=== PATIENT | female | born 1950 | race American Indian/Alaskan Native ===

== ENCOUNTER 2019-11-02 09:26 | Outpatient (CLI) | payer OTHER ==
--- NOTE | 2019-11-02 12:03 | Ultrasound Report ---
BILATERAL DIGITAL DIAGNOSTIC MAMMOGRAM WITH CAD 11/02/2019 RIGHT COMPLETE BREAST ULTRASOUND INDICATION: Right nipple discharge. The patient describes a nonspontaneous milky right nipple dischar ge. TECHNIQUE: Digital bilateral mammographic imaging was performed. This examination was interpreted wi th the benefit of Computer-Aided Detection (CAD) analysis. COMPARISON: None available. However, she indicated that she had a prior mammogram at [facility]. FINDINGS: Breast Density: The breasts are heterogeneously dense, which may obscure small masses. MAMMOGRAPHIC FINDINGS: Circumscribed right lower inner densities persist on spot compression. There i s no evidence of dominant mass, suspicious calcifications or architectural distortion in the left reba ast. ULTRASOUND FINDINGS: Complete sonographic evaluation of all 4 quadrants and retroareolar region was p erformed. Ultrasound of the right breast demonstrated an oval solid hypoechoic shadowing mass at 5: 00 2 cm from the nipple measuring 5 x 5 x 3 mm. It may correlate with one of the mammographic densiti es. A benign cyst at 3:00 4 cm from the nipple measures 3 mm and may correlate with the mammographic density. Ultrasound of the right axilla demonstrated a suspicious lymph node with no central fat. It measures 8 x 8 x 6 mm. IMPRESSION: A suspicious 5 mm solid right breast mass at 5:00 2 cm from the nipple and a suspicious r ight axillary lymph node. Recommend ultrasound-guided needle biopsies of these 2 lesions. Discussed the findings and the recommendation for needle biopsies with the patient at the time of the exam. Follow up recommendation: Biopsy BI-RADS Category 4: Suspicious for Malignancy. A "normal" or negative report should not discourage follow up or biopsy of a clinically significant f inding. A written summary of these findings will be mailed to the patient. The patient will be entered into a mammography reporting system which will generate a reminder letter for the patient's next appointmen t at the appropriate interval. According to the [employer], yearly mammograms are recommended starting at age 40 and continuing as long as a woman is in good health. Breast MRI is recommended for women with an destiny roximately 20-25% or greater lifetime risk of breast cancer, including women with a strong family his tory of breast or ovarian cancer and women who have been treated for Hodgkin's disease. Signer Name: Leopoldo Mora MD Signed: 11/02/2019 11:58 AM Workstation Name: [id number]
== END 2019-11-02 09:27 | disposition home or self-care (01) ==
LOC: MAMMO 09:26
PROVIDERS: ATTEND Internal Medicine
DX: N60.01 Solitary cyst of right breast (principal); N63.14 Unspecified lump in the right breast, lower inner quadrant
CPT/HCPCS: 77066

== ENCOUNTER 2019-12-03 08:48 | Outpatient (CLI) | payer OTHER ==
--- NOTE | 2019-12-03 10:15 | Ultrasound Report ---
LIMITED RIGHT BREAST ULTRASOUND INDICATION: RIGHT BREAST MASS. The patient presented for an ultrasound biopsy of a 5 mm lesion identified by ultr asound 11/02/2019. COMPARISON: 11/02/2019 ultrasound performed at [facility]. FINDINGS: Ultrasound of the right breast failed to demonstrate a mass at 5:00 2 cm from the nipple to correlate with the finding performed on a different ultrasound machine. Ultrasound of the right axilla demonst rated normal lymph nodes with fatty ashwin and no suspicious lymph nodes. IMPRESSION: 1. No suspicious lesion or lymph node biopsy. 2. Probably benign findings. 3. Recommend. 6 month follow-up right mammogram and targeted right breast ultrasound at 5:00 2 cm fro m the nipple. BI-RADS Category 3: Probably Benign Signer Name: Leopoldo Mora MD Signed: 12/03/2019 10:11 AM Workstation Name: [id number]
== END 2019-12-03 08:49 | disposition home or self-care (01) ==
LOC: SPVWC 08:48
PROVIDERS: ATTEND Internal Medicine
DX: N63.10 Unspecified lump in the right breast, unspecified quadrant (principal); R59.0 Localized enlarged lymph nodes